=== PATIENT | male | born 1965 | race Hispanic/Latino ===

== ENCOUNTER 2017-12-11 07:35 | Day surgery (SDC) | payer OTHER ==
[2017-12-10 16:14] LABS: BASOPHILS % (AUTO) 1.3 % (0.0-5.0); EOSINOPHILS % (AUTO) 3.7 % (0.0-8.0); HEMATOCRIT 44.2 % (42-54); LYMPHOCYTES % (AUTO) 32.5 % (21.0-51.0); MEAN CORPUSCULAR HEMOGLOBIN 29.9 pg (27.0-33.0); MEAN CORPUSCULAR HGB CONC 33.9 g/dL (32.0-36.0); MEAN CORPUSCULAR VOLUME 88.1 fL (79-99); MONOCYTES % (AUTO) 5.6 % (3.0-13.0); NEUTROPHILS % (AUTO) 56.9 % (40.0-77.0); PLATELET COUNT (AUTO) 264 K/uL (130-400); RED BLOOD CELL COUNT(AUTO) 5.02 MIL/uL (4.50-6.20); RED CELL DISTRIBUTION WIDTH 12.8 % (11.0-15.5); WHITE BLOOD COUNT (AUTO) 6.6 K/uL (4.8-10.8)
[2017-12-10 16:18] VITALS: BP 136/87
[2017-12-10 16:23] LABS: CREATININE 0.9 mg/dL (0.5-1.5); POTASSIUM 3.8 mmol/L (3.5-5.1)
[~2017-12-11] VITALS: Ht 180.3 cm; Wt 112.9 kg
[2017-12-11] VITALS (16 sets, daily range): BP systolic 118–150; BP diastolic 68–91
[~2017-12-11 07:35] MED LIST: ACET1TAB12 PO; AMLO10TA6 PO; METO-409 PO; TAMS-1 PO
[2017-12-11] MEDS ORDERED: CEFAZOLIN 3GM /D5W 100ML 100 ML IV PRN (08:00)
[2017-12-11] MEDS ORDERED: LACTATED RINGERS 1000ML 1,000 ML IV ONE (08:17)
[2017-12-11] MEDS ORDERED: VANCOMYCIN HCL 1 GM VIAL ONE (08:29)
[2017-12-11] MEDS ORDERED: CEFAZOLIN SODIUM 1 GM VIAL ONE (08:41)
[2017-12-11] MEDS ORDERED: ROCURONIUM 10MG/1ML SYR 10 MG/ML ML ONE (09:16)
[2017-12-11] MEDS ORDERED: GLYCOPYRROLATE 1 MG/5 ML SYRINGE ONE (09:54)
[2017-12-11] MEDS ORDERED: NEOSTIGMINE 5MG/5ML SYR IV ONE (09:54)
[2017-12-11] MEDS ORDERED: TYL3 PO (09:58)
[2017-12-11] MEDS ORDERED: CEPH500B PO (09:58)
[2017-12-11] MEDS ORDERED: COLC0.6T70 PO (09:58)
[2017-12-11] MEDS ORDERED: MEPERIDINE-PF 25 MG/ML SYG ONE ×2 (10:05→10:25)
[2017-12-11] MEDS ORDERED: KETOROLAC TROMETHAMINE 30MG/ML ONE (10:12)
[2017-12-11] MEDS ORDERED: MORPHINE SULFATE 4 MG/1ML SYG ONE (10:18)
[2017-12-11] MEDS ORDERED: PROMETHAZINE HCL 25 MG/ML 1ML AMPULE IM ONE (10:25)
[2017-12-11] MEDS ORDERED: ONDANSETRON HCL 4 MG/2 ML VIAL ONE (10:52)
[2017-12-11] MEDS ORDERED: LIDOCAINE PF 2% 5ML ABBOJECT ONE (10:52)
[2017-12-11] MEDS ORDERED: PROPOFOL 10 MG/ML 20ML VIAL IV ONE (10:52)
[2017-12-11] MEDS ORDERED: DEXAMETHASONE SOD PHOSPHATE 10MG/ML 1ML VIAL ONE (10:52)
[2017-12-11] MEDS ORDERED: FENTANYL CITRATE PF 50 MCG/1 ML 2ML VIAL ONE (10:52)
[2017-12-11] MEDS ORDERED: MIDAZOLAM HCL 1 MG/ML 2ML VIAL ONE (10:52)
[2017-12-11 11:15] LABS: APPEARANCE BODY FLUID CLOUDY (CLEAR); BODY FLUID WBC 940 /cu. mm.; COLOR,BODY FLUID ORANGE (LT YELLOW); SPECIMENTYPE,BODY FLUID SYNOVIAL; TOTAL VOLUME,BODY FLUID 1 mL
[2017-12-11 11:16] LABS: BODY FLUID RBC 5375 /cu. mm.
[2017-12-11 11:27] LABS: BF LYMPHOCYTE 15 %; BF MESOTHELIAL 3 %; BF MONOCYTE 18 %
[2017-12-11 15:07] LABS: CRYSTALS, SYNOVIAL FLUID SEE SEPARATE REPORT
== END 2017-12-11 12:30 | disposition home or self-care (01) ==
LOC: DAH 07:35
PROVIDERS: ATTEND Orthopaedic Surgery
DX: M23.352 Other meniscus derangements, posterior horn of lateral meniscus, left knee (principal); M65.862 Other synovitis and tenosynovitis, left lower leg; M25.462 Effusion, left knee; I10 Essential (primary) hypertension; F15.90 Other stimulant use, unspecified, uncomplicated; E66.9 Obesity, unspecified; Z68.34 Body mass index [BMI] 34.0-34.9, adult; Z98.890 Other specified postprocedural states; Z87.891 Personal history of nicotine dependence; Z72.89 Other problems related to lifestyle; Z79.1 Long term (current) use of non-steroidal anti-inflammatories (NSAID); Z79.899 Other long term (current) drug therapy; Z82.49 Family history of ischemic heart disease and other diseases of the circulatory system; Z83.3 Family history of diabetes mellitus; Z80.8 Family history of malignant neoplasm of other organs or systems; Z82.5 Family history of asthma and other chronic lower respiratory diseases
CPT/HCPCS: 29876; 29881; 36415; 80048; 85025; 87070; 87076; 87205; 88304; 89051; 89060; A4649 ×2; A4930; A6223; J0690; J1100; J1885; J2001; J2175 ×2; J2250; J2270; J2405; J2550; J2704; J2710; J3010; J3370; J3490; J7120

== ENCOUNTER 2018-04-14 22:35 | Emergency (ER) | payer OTHER ==
[~2018-04-14 22:35] MED LIST changes: -ACET1TAB12 PO; -AMLO10TA6 PO; +AMLO10TA7 PO; +CEPH500B PO; +COLC0.6T70 PO; +TYL3 PO
[2018-04-14] MEDS ORDERED: LIDOCAINE HCL 2% VISCOUS 15 ML UDCUP ONE (22:56)
[2018-04-14] MEDS ORDERED: MAG HYDROX/AL HYDROX/SIMETH ES 30 ML SUSP UDCUP ONE (22:56)
[2018-04-14] MEDS ORDERED: METOCLOPRAMIDE 10 MG/2 ML VIAL ONE (22:56)
[2018-04-14] MEDS ORDERED: SODIUM CHLORIDE 0.9% 1000ML 1,000 ML IV ONE (22:56)
[2018-04-14] MEDS ORDERED: FAMOTIDINE/PF 20 MG/2 ML VIAL IV ONE (22:57)
[2018-04-14 23:22] LABS: RED CELL DISTRIBUTION WIDTH 13.4 % (11.0-15.5); WHITE BLOOD COUNT (AUTO) 6.6 K/uL (4.8-10.8)
[2018-04-14] MEDS ORDERED: MORPHINE SULFATE 4 MG/1ML SYG ONE (23:25)
[2018-04-14] MEDS ORDERED: ONDANSETRON HCL 4 MG/2 ML VIAL ONE (23:25)
[2018-04-14 23:31] LABS: CREATININE 0.8 mg/dL (0.5-1.5); POTASSIUM 3.7 mmol/L (3.5-5.1)
[2018-04-14 23:32] LABS: PARTIAL THROMBOPLASTIN TIME 28.9 SEC (26.3-35.5); PROTHROMBIN TIME 10.5 SEC (9.6-11.6)
[2018-04-14 23:37] LABS: ALBUMIN 3.8 g/dL (3.5-5.0); BILIRUBIN,TOTAL 0.5 mg/dL (0.2-1.0); TOTAL PROTEIN, SERUM 7.6 g/dL (6.0-8.3)
[2018-04-15 00:17] LABS: BASOPHILS % (AUTO) 1.5 % (0.0-5.0); EOSINOPHILS % (AUTO) 1.7 % (0.0-8.0); HEMATOCRIT 44.8 % (42-54); LYMPHOCYTES % (AUTO) 22.5 % (21.0-51.0); MEAN CORPUSCULAR HEMOGLOBIN 30.4 pg (27.0-33.0); MEAN CORPUSCULAR HGB CONC 34.4 g/dL (32.0-36.0); MEAN CORPUSCULAR VOLUME 88.4 fL (79-99); NEUTROPHILS % (AUTO) 67.3 % (40.0-77.0); NUCLEATED RED BLOOD CELLS 0.1 % (0.0-0.19); PLATELET COUNT (AUTO) 213 K/uL (130-400); RED BLOOD CELL COUNT(AUTO) 5.06 MIL/uL (4.50-6.20)
[2018-04-15 00:31] LABS: APPEARANCE,URINE Cloudy (CLEAR); BILIRUBIN,URINE Negative (NEGATIVE); COLOR,URINE Yellow (YELLOW); GLUCOSE, URINE (UA) Negative (NEGATIVE); KETONES,URINE Trace mg/dL (NEGATIVE); LEUKOCYTE ESTERASE ,URINE Trace (NEGATIVE); NITRATE,URINE Negative (NEGATIVE); OCCULT BLOOD,URINE Negative (NEGATIVE); PROTEIN,URINE Negative (NEGATIVE)
[2018-04-15 00:41] LABS: BACTERIA,URINE Few /HPF (None Seen); MUCUS,URINE Few LPF (None Seen); RBC,URINE 0-1 /HPF (0-1)
[2018-04-15] MEDS ORDERED: DiphenhydrAMINE HCL 50 MG/ML VIAL ONE (01:56)
[2018-04-15] MEDS ORDERED: KETOROLAC TROMETHAMINE 30MG/ML ONE (01:57)
[2018-04-15] MEDS ORDERED: DICYCLOMINE HCL 20 MG TAB ONE (01:57)
== END 2018-04-15 02:41 | disposition home or self-care (01) ==
LOC: EDH 22:35
DX: R10.13 Epigastric pain (principal); R10.11 Right upper quadrant pain; I10 Essential (primary) hypertension; Z72.0 Tobacco use
CPT/HCPCS: 36415; 74177; 76705; 80053; 81001; 83605; 83690; 84484; 85025; 85610; 85730; 93005; 96374; 96375; 99284; J1200; J1885; J2270; J2405; J2765; J3490; J7030

== ENCOUNTER 2019-05-05 11:48 | Emergency (ER) | payer OTHER ==
[2019-05-05 12:22] LABS: HEMATOCRIT 45.2 % (42-54); LYMPHOCYTES % (AUTO) 17.1 % (21.0-51.0); MEAN CORPUSCULAR HEMOGLOBIN 29.8 pg (27.0-33.0); MEAN CORPUSCULAR HGB CONC 34.5 g/dL (32.0-36.0); MEAN CORPUSCULAR VOLUME 86.3 fL (79-99); MONOCYTES % (AUTO) 6.8 % (3.0-13.0); NEUTROPHILS % (AUTO) 72.4 % (40.0-77.0); PLATELET COUNT (AUTO) 245 K/uL (130-400); RED BLOOD CELL COUNT(AUTO) 5.24 MIL/uL (4.50-6.20); RED CELL DISTRIBUTION WIDTH 12.8 % (11.0-15.5); WHITE BLOOD COUNT (AUTO) 8.6 K/uL (4.8-10.8)
[2019-05-05 12:24] LABS: CREATININE 0.9 mg/dL (0.5-1.5); POTASSIUM 3.5 mmol/L (3.5-5.1)
[2019-05-05 12:30] LABS: ALBUMIN 3.6 g/dL (3.5-5.0); BILIRUBIN,TOTAL 0.8 mg/dL (0.2-1.0); TOTAL PROTEIN, SERUM 7.8 g/dL (6.0-8.3)
[2019-05-05 12:31] LABS: INR 1.02 (0.85-1.15); PROTHROMBIN TIME 10.7 SEC (9.6-11.6)
[2019-05-05 12:56] LABS: B-TYPE NATRIURETIC PEPTIDE 13 pg/mL (0-100)
[2019-05-05] MEDS ORDERED: SODIUM CHLORIDE 0.9% 1000ML 1,000 ML IV ONE (13:13)
[2019-05-05] MEDS ORDERED: IOHEXOL-350 75 ML VIAL IV ONE (13:31)
== END 2019-05-05 15:07 | disposition home or self-care (01) ==
LOC: EDH 11:48
DX: R07.89 Other chest pain (principal); R06.00 Dyspnea, unspecified; I10 Essential (primary) hypertension; Z72.0 Tobacco use
CPT/HCPCS: 36415; 71045; 71275; 80053; 82550; 83880; 84484 ×2; 85025; 85378; 85610; 85730; 93005 ×2; 99285; J7030; Q9967

== ENCOUNTER 2020-07-04 18:48 | Emergency (ER) | payer BC, OTHER ==
[~2020-07-04 18:48] MED LIST changes: +AMLO-258 PO; -AMLO10TA7 PO; -COLC0.6T70 PO; +COLC0.6T73 PO
[2020-07-04 19:14] LABS: BASOPHILS % (AUTO) 1.2 % (0.0-5.0); EOSINOPHILS % (AUTO) 3.1 % (0.0-8.0); HEMATOCRIT 41.8 % (42-54); LYMPHOCYTES % (AUTO) 22.4 % (21.0-51.0); MEAN CORPUSCULAR HGB CONC 34.7 g/dL (32.0-36.0); MEAN CORPUSCULAR VOLUME 86.5 fL (79-99); MONOCYTES % (AUTO) 8.1 % (3.0-13.0); NEUTROPHILS % (AUTO) 64.9 % (40.0-77.0); PLATELET COUNT (AUTO) 246 K/uL (130-400); RED BLOOD CELL COUNT(AUTO) 4.83 MIL/uL (4.50-6.20); RED CELL DISTRIBUTION WIDTH 12.8 % (11.0-15.5); WHITE BLOOD COUNT (AUTO) 7.4 K/uL (4.8-10.8)
[2020-07-04 19:25] LABS: CREATININE 0.9 mg/dL (0.5-1.5); INR 1.03 (0.85-1.15); POTASSIUM 3.5 mmol/L (3.5-5.1); PROTHROMBIN TIME 11.2 SEC (9.6-11.6)
[2020-07-04 19:26] LABS: PARTIAL THROMBOPLASTIN TIME 26.6 SEC (26.3-35.5)
[2020-07-04 19:27] LABS: ALBUMIN 3.8 g/dL (3.5-5.0); BILIRUBIN,TOTAL 0.5 mg/dL (0.2-1.0); TOTAL PROTEIN, SERUM 7.8 g/dL (6.0-8.3)
[2020-07-04] MEDS ORDERED: ASPIRIN 325 MG TABLET ONE (19:57)
== END 2020-07-04 23:31 | disposition home or self-care (01) ==
LOC: EDH 18:48
DX: R07.89 Other chest pain (principal); Z20.822 Contact with and (suspected) exposure to COVID-19; I10 Essential (primary) hypertension; Z87.891 Personal history of nicotine dependence
CPT/HCPCS: 36415; 71045; 80053; 82550; 84484 ×3; 85025; 85610; 85730; 87426; 93005 ×2; 99285; U0003

== ENCOUNTER → 2020-07-07 | Outpatient (CLI) | payer OTHER | END | disposition home or self-care (01) | LOC: RAH 15:00 | PROVIDERS: ATTEND Internal Medicine | DX: Z13.6 Encounter for screening for cardiovascular disorders (principal) | CPT/HCPCS: 75571 ==

== ENCOUNTER → 2021-03-20 | Outpatient (CLI) | payer OTHER | END | disposition home or self-care (01) | LOC: RAH 12:34 | PROVIDERS: ATTEND Student in an Organized Health Care Education/Training Program | DX: I11.9 Hypertensive heart disease without heart failure (principal) | CPT/HCPCS: 93306 ==

== ENCOUNTER → 2022-03-29 | Outpatient (CLI) | payer OTHER ==
[~2022-03-29] MED LIST changes: +IOHEXOL 350 MG/ML 100ML INFUS..BTL IV ONE
== END | disposition home or self-care (01) ==
LOC: RAH 08:36
PROVIDERS: ATTEND Student in an Organized Health Care Education/Training Program
DX: R07.9 Chest pain, unspecified (principal)
CPT/HCPCS: 75574; Q9967

== ENCOUNTER 2022-05-13 13:38 | Emergency (ER) | payer OTHER, BC ==
[~2022-05-13] VITALS: Ht 180.3 cm; Wt 111.1 kg
[~2022-05-13 13:38] MED LIST changes: -IOHEXOL 350 MG/ML 100ML INFUS..BTL IV ONE
[2022-05-13 13:39] VITALS: BP 168/89
[2022-05-13] MEDS ORDERED: CEPH500B PO (14:57)
[2022-05-13] MEDS ORDERED: TETANUS/DIPHTHERIA TOXOID [ADULT] 0.5 ML VIAL IM ONE (15:00)
== END 2022-05-13 15:59 | disposition home or self-care (01) ==
LOC: EDH 13:38
DX: S61.211A Laceration without foreign body of left index finger without damage to nail, initial encounter (principal); I10 Essential (primary) hypertension; Z79.899 Other long term (current) drug therapy; W26.8XXA Contact with other sharp object(s), not elsewhere classified, initial encounter; Y93.89 Activity, other specified; Y92.89 Other specified places as the place of occurrence of the external cause; Y99.8 Other external cause status
CPT/HCPCS: 12001; 73140; 90471; 90714

== ENCOUNTER → 2023-06-13 | Outpatient (CLI) | payer OTHER | END | disposition home or self-care (01) | LOC: RAH 14:52 | PROVIDERS: ATTEND Student in an Organized Health Care Education/Training Program | DX: I70.201 Unspecified atherosclerosis of native arteries of extremities, right leg (principal); I72.9 Aneurysm of unspecified site | CPT/HCPCS: 93931 ==

== ENCOUNTER → 2024-04-24 | Outpatient (CLI) | payer OTHER ==
[~2024-04-24] MED LIST changes: +IOHEXOL-350 75 ML VIAL IV ONE
--- NOTE | 2024-04-24 12:42 | HMCIMG ---
CT CHEST W/CONTRAST HISTORY: Abnormal findings on diagnostic imaging COMPARISON: None TECHNIQUE: Multiple sequential axial images of the chest were obtained from the thoracic inlet through upper abdomen. Patient was given 75 cc of Omnipaque through intravenous route. FINDINGS: There is no evidence of pulmonary nodule or parenchymal disease. No pleural effusion or pericardial effusion is seen. There is no evidence of pneumothorax. There are normal size mediastinal and hilar lymph nodes. The heart is not enlarged. Degenerative changes of the thoracolumbar spine are present. There is no evidence of adrenal nodule. Fatty changes of the liver are noted. Gallbladder is distended with small gallstones. IMPRESSION: 1. No evidence of pulmonary nodule or effusion is seen. Distended gallbladder with small gallstones. CT was performed with one or more following dose reduction techniques: automated exposure control, adjustment of the mA and kv according to patient's size, or use of a iterative reconstruction technique.
== END | disposition home or self-care (01) ==
LOC: RAH 10:26
PROVIDERS: ATTEND Internal Medicine Gastroenterology
DX: K76.0 Fatty (change of) liver, not elsewhere classified (principal); M47.815 Spondylosis without myelopathy or radiculopathy, thoracolumbar region; R93.3 Abnormal findings on diagnostic imaging of other parts of digestive tract; N32.89 Other specified disorders of bladder; N21.0 Calculus in bladder
CPT/HCPCS: 71260; Q9967

== ENCOUNTER 2024-10-27 07:32 | Day surgery (SDC) | payer OTHER ==
[~2024-10-27] VITALS: Ht 177.8 cm; Wt 107.5 kg
[2024-10-27] VITALS (10 sets, daily range): BP systolic 115–145; BP diastolic 71–92; PULSE 66–77; RESP 11–17; TEMP 97.3–97.9
[~2024-10-27 07:32] MED LIST changes: -IOHEXOL-350 75 ML VIAL IV ONE; -TAMS-1 PO; +TAMS-55 PO
[2024-10-27] MEDS ORDERED: NIFE-78 PO (07:59)
[2024-10-27] MEDS ORDERED: PANT40TA54 PO (07:59)
[2024-10-27] MEDS: 0.9%NACL 1000ML 1,000 ML IV ONE (08:03)
== END 2024-10-27 10:20 | disposition home or self-care (01) ==
LOC: DAH 07:32 → ENDO 07:32
PROVIDERS: ATTEND Internal Medicine Gastroenterology
DX: R93.3 Abnormal findings on diagnostic imaging of other parts of digestive tract (principal); K29.50 Unspecified chronic gastritis without bleeding; K22.89 Other specified disease of esophagus; R93.5 Abnormal findings on diagnostic imaging of other abdominal regions, including retroperitoneum; K80.20 Calculus of gallbladder without cholecystitis without obstruction; R19.7 Diarrhea, unspecified; K57.30 Diverticulosis of large intestine without perforation or abscess without bleeding; R43.0 Anosmia; I10 Essential (primary) hypertension; K21.9 Gastro-esophageal reflux disease without esophagitis; E66.9 Obesity, unspecified; Z68.35 Body mass index [BMI] 35.0-35.9, adult; Z86.0100 Personal history of colon polyps, unspecified; Z98.890 Other specified postprocedural states; Z79.899 Other long term (current) drug therapy
CPT/HCPCS: 43259; 43239; J7030; J2704 ×2; A4620; A4215; J3490